=== PATIENT | male | born 1990 | race Hispanic/Latino ===

== ENCOUNTER 2017-10-27 21:21 | Emergency (ER) | payer SELFPAY ==
[2017-10-27] MEDS ORDERED: Ketorolac Tromethamine 60 MG/2 ML VIAL ONE (22:13)
--- NOTE | 2017-10-27 22:34 | RAD ---
LEFT ANKLE THREE VIEWS: History: Left ankle pain, twisted ankle. FINDINGS/IMPRESSION: Soft tissue is present. The ankle mortise is maintained. No acute fracture or dislocation is identifi ed. POS: BING
== END 2017-10-27 22:47 | disposition home or self-care (01) ==
LOC: ERS 21:21
DX: S93.402A Sprain of unspecified ligament of left ankle, initial encounter (principal); F17.200 Nicotine dependence, unspecified, uncomplicated; X50.1XXA Overexertion from prolonged static or awkward postures, initial encounter; Y92.812 Truck as the place of occurrence of the external cause; Y99.0 Civilian activity done for income or pay
CPT/HCPCS: 96372; J1885

== ENCOUNTER 2022-02-11 19:13 | Emergency (ER) | payer SELFPAY ==
[2022-02-11] MEDS ORDERED: Boostrix 0.5 ML (Tdap) VIAL (>/=7 yrs of age) ONE (20:16)
[2022-02-11] MEDS ORDERED: Morphine 4 MG/ML VIAL ONE (20:16)
== END 2022-02-11 22:26 | disposition short-term general hospital (02) ==
LOC: ERS 19:13
DX: T21.23XA Burn of second degree of upper back, initial encounter (principal); T22.20XA Burn of second degree of shoulder and upper limb, except wrist and hand, unspecified site, initial encounter; T22.211A Burn of second degree of right forearm, initial encounter; T31.0 Burns involving less than 10% of body surface; F17.210 Nicotine dependence, cigarettes, uncomplicated; X16.XXXA Contact with hot heating appliances, radiators and pipes, initial encounter
CPT/HCPCS: 90471; 90715; 96374; G0390; J2270

== ENCOUNTER 2025-02-15 18:12 | Emergency (ER) | payer SELFPAY ==
[2025-02-15] MEDS ORDERED: Mag-Al 1200 mg/1200 mg/30 ML UDCUP ONE (19:13)
[2025-02-15] MEDS ORDERED: Dexamethasone 10 MG/ML VIAL ONE (19:13)
[2025-02-15] MEDS ORDERED: Lidocaine Viscous Sol 2% 15 ml UD Cup ONE (19:13)
== END 2025-02-15 19:40 | disposition home or self-care (01) ==
LOC: ERS 18:12
DX: T18.9XXA Foreign body of alimentary tract, part unspecified, initial encounter (principal); F17.220 Nicotine dependence, chewing tobacco, uncomplicated
CPT/HCPCS: 71045; 96372; J1100